=== PATIENT | male | born 1950 | race Caucasian/White ===

== ENCOUNTER 2021-12-29 07:13 | Outpatient (CLI) | payer MEDICARE, SELFPAY ==
[2021-12-29 07:56] LABS: Alanine Aminotransferase 35 U/L (16-63); Alkaline Phosphatase 100 U/L (46-116); Anion Gap 6 mmol/L (8-16); Aspartate Amino Transferase 27 U/L (15-37); Bilirubin,Total 0.6 mg/dL (0.00-1.00); Blood Urea Nitrogen 25 mg/dL (7-18); Calcium 9.2 mg/dL (8.5-10.1); Carbon Dioxide 29 mmol/L (21-32); Chloride 100 mmol/L (98-108); Cholesterol 181 mg/dL (0-200); Estimated Glomerular Filt Rate > 60; Glucose 182 mg/dL (70-99); HDL Direct 43 mg/dL (40-60); LDL Cholesterol Calculated 72 mg/dL (<130); Osmolality Calculated 289 mOsm/kg (285-295); Potassium 4.1 mmol/L (3.5-5.1); Sodium 135 mmol/L (136-145); Total Protein 7.5 g/dL (6.4-8.2); Triglycerides 330 mg/dL (0-150)
== END 2021-12-29 07:14 | disposition home or self-care (01) ==
LOC: CHSLAB 07:16
PROVIDERS: PCP Family Medicine; Visit Provider Family Medicine
DX: R73.03 Prediabetes (principal); E78.2 Mixed hyperlipidemia; I10 Essential (primary) hypertension
CPT/HCPCS: 36415; 80053; 80061; 83036